=== PATIENT | male | born 1955 | race Caucasian/White ===

== ENCOUNTER 2018-01-05 18:35 | Inpatient (IN) | payer SELFPAY ==
[2018-01-05] MEDS ORDERED: NORMAL SALINE 1000 ML 1,000 ML IV ONE (18:59)
[2018-01-05] MEDS ORDERED: ALBUTEROL SULFATE 0.083% NEB 2.5 MG/3 ML AMPUL NEB ONE (18:59)
[2018-01-05 19:22] LABS: VENOUS BLOOD BASE EXCESS -27.8 mmol/L; VENOUS BLOOD HCO3 4.6 mmol/L (20-32); VENOUS BLOOD PCO2 25.2 mmHg (35-63)
[2018-01-05 19:27] LABS: INTERNATIONAL RATION (INR) 1.26; PROTHROMBIN TIME 16.4 SEC (11.4-15.4)
[2018-01-05 19:30] LABS: HEMATOCRIT 37.8 % (37.9-51.0); HEMOGLOBIN 11.9 g/dL (13.5-17.0); MEAN CORPUSCULAR HEMOGLOBIN 37.1 pg (27.0-33.4); MEAN CORPUSCULAR HGB CONC 31.5 g/dL (32.0-36.0); PLATELET COUNT 235 10^3/uL (150-450); RED BLOOD COUNT 3.21 10^6/uL (4.35-5.55); RED CELL DISTRIBUTION WIDTH 14.2 % (11.5-14.0); VENOUS BLOOD PH 6.88 (7.30-7.42); WHITE BLOOD COUNT 14.3 10^3/uL (4.0-10.5)
--- NOTE | 2018-01-05 19:30 | RADIOLOGY REPORT (SQ) ---
EXAM DESCRIPTION: CHEST SINGLE VIEW COMPLETED DATE/TIME: 01/05/2018 7:16 pm REASON FOR STUDY: SOB, tachypnea COMPARISON: None. EXAM PARAMETERS: NUMBER OF VIEWS: One view. TECHNIQUE: Single frontal radiographic view of the chest acquired. RADIATION DOSE: NA LIMITATIONS: None. FINDINGS: LUNGS AND PLEURA: No acute opacities, masses or pneumothorax. No pleural effusion. MEDIASTINUM AND HILAR STRUCTURES: Age-appropriate contour. HEART AND VASCULAR STRUCTURES: Heart upper limits of normal in size. Normal vasculature. BONES: No acute findings. HARDWARE: None in the chest. OTHER: No other significant finding. IMPRESSION: NO ACUTE RADIOGRAPHIC FINDING IN THE CHEST. TECHNICAL DOCUMENTATION: JOB ID: [id number] [id number] 2010 [employer]- All Rights Reserved Reading location - IP/workstation name: [email or web address]
[2018-01-05 19:31] LABS: MEAN CORPUSCULAR VOLUME 118 fl (80-97)
--- NOTE | 2018-01-05 19:39 | ER Document Report ---
ED General - General Mode of Arrival: Medic Information source: Patient TRAVEL OUTSIDE OF THE [place] IN LAST 30 DAYS: No <PHUC RAPP - Last Filed: 01/06/18 03:04> <KATIE OSEGUERA - Last Filed: 01/06/18 03:15> - General Chief Complaint: Shortness Of Breath Stated Complaint: SHORTNESS OF BREATH Time Seen by Provider: 01/05/18 18:49 Notes: Patient is a 62 year old male with HTN, diabetes, gastroparesis and a history of [place] x2 and a stroke presents to the emergency department complaining of difficulty breathing, nausea, and fatigue onset this morning. Patient states he woke up this morning and just felt awful. He states he thought his symptoms would go away but states they persisted. Patient denies any exacerbation of his difficulty breathing when supine. He mentions having his Insulin decreased along with a change to a Keto diet. Patient also complained of his mouth feeling very dry. Patient denies chest pain, cough, diarrhea, or blurry vision. In triage, patient blood sugar was found to be greater than 550. Patient states it is abnormal for his blood sugars be in the 500s. Patient was discharged from [facility] yesterday after being diagnosed with gastroparesis. (PHUC RAPP) - Related Data Allergies/Adverse Reactions: No Known Allergies Allergy (Unverified 01/05/18 20:21) Past Medical History - General Information source: Patient - Social History Smoking Status: Former Smoker - quit 2013 Chew tobacco use (# tins/day): No Frequency of alcohol use: Occasional Drug Abuse: None Patient has suicidal ideation: No Patient has homicidal ideation: No - Past Medical History Cardiac Medical History: Reports: Hx Heart Attack - x2, no stents, Hx Hypertension Endocrine Medical History: Reports: Hx Diabetes Mellitus Type 2 <PHUC RAPP - Last Filed: 01/06/18 03:04> - Social History Family History: DM <KATIE OSEGUERA - Last Filed: 01/06/18 03:15> Review of Systems - Review of Systems Constitutional: See HPI EENT: No symptoms reported Cardiovascular: No symptoms reported Respiratory: See HPI, Short of breath Gastrointestinal: See HPI, Nausea Genitourinary: No symptoms reported Male Genitourinary: No symptoms reported Musculoskeletal: No symptoms reported Skin: No symptoms reported Hematologic/Lymphatic: No symptoms reported Neurological/Psychological: No symptoms reported -: Yes All other systems reviewed and negative <PHUC RAPP - Last Filed: 01/06/18 03:04> Physical Exam <PHUC RAPP - Last Filed: 01/06/18 03:04> <KATIE OSEGUERA - Last Filed: 01/06/18 03:15> - Vital signs Vitals: Pulse Ox 100 01/05/18 18:39 - Notes Notes: GENERAL: Alert, appears uncomfortable, speaking in 5-6 word sentences. HEAD: Normocephalic, atraumatic. EYES: Pupils equal, round, and reactive to light. Extraocular movements intact. ENT: Oral mucosa moist, tongue midline. NECK: Full range of motion. Supple. Trachea midline. LUNGS:Tachypneic. Clear to auscultation bilaterally, no wheezes, rales, or rhonchi. HEART: Regular rate and rhythm. No murmurs, gallops, or rubs. ABDOMEN: Soft, non-tender. Non-distended. Bowel sounds present in all 4 quadrants. EXTREMITIES: Moves all 4 extremities spontaneously. No edema, faint radial and dorsalis pedis pulses bilaterally. No cyanosis. NEUROLOGICAL: Alert and oriented x3. Normal speech. PSYCH: Normal affect, normal mood. SKIN: Skin is mottled around the knees. Warm, dry, normal turgor. No rashes or lesions noted. (PHUC RAPP) Course - Laboratory Result Diagrams: 01/05/18 19:00 01/06/18 02:07 <PHUC RAPP - Last Filed: 01/06/18 03:04> - Laboratory Result Diagrams: 01/05/18 19:00 01/06/18 02:07 <KATIE OSEGUERA - Last Filed: 01/06/18 03:15> - Re-evaluation Re-evalutation: 01/05/18 19:44 Patient's pH came back at 6.88. Patient is still oriented, mottled, tachypneic and uncomfortable. Will start an insulin drip and BiPAP to help from fatigue of tachypnea and will administer an amp of bicarb. (PHUC RAPP) 01/05/18 21:36 CBC showed leukocytosis of 14.3, anemia with hemoglobin 11.9, platelets normal, no left shift, INR somewhat prolonged at 1.26, not taking any blood thinners, blood gas and chemistries are consistent with diabetic ketoacidosis, venous blood gas shows a pH of 6.88 and a PCO2 of 25.2 consistent with how rapidly he is breathing to compensate for the acidosis, arterial blood gas repeated about an hour and a half later after bicarb had been administered shows a pH of 6.89 and a PCO2 of 13.1, oxygenating well with a PO2 of 211.2, chemistries show elevated potassium at 6.2, this will be treated with the insulin drip that we are using to treat the diabetic ketoacidosis, BUN and creatinine are both elevated, I have no baseline to compare to however states that he had some kidney damage when he was discharged from [facility] yesterday, glucose markedly elevated at 609, lactic acid ability elevated at 7.8, currently I do not suspect sepsis as I have no source and he has no specific complaints other than shortness of breath. Chest x-ray is negative, urinalysis is pending. Cardiac enzymes are elevated with a CK 186, CK-MB of 4.75, troponin elevated at 0.156. No evidence of heart failure, suspect this is more of a reaction to the stress from DKA than a true non-STEMI. EKG is tachycardic but not ischemic. Discussed with Dr. Martell who agrees with insulin drip, hydration, BiPAP for respiratory support given that he is breathing so quickly I am afraid he may fatigue his respiratory muscles and admission to the intensive care unit. (KATIE OSEGUERA) - Vital Signs Vital signs: Temp Pulse Resp BP Pulse Ox 97.0 F 107 H 18 94/53 L 100 01/06/18 00:00 01/05/18 23:35 01/06/18 03:00 01/06/18 02:51 01/06/18 03:00 - Laboratory Laboratory results interpreted by me: 01/05/18 01/05/18 01/05/18 18:50 19:00 19:00 WBC RBC Hgb Hct MCV MCH MCHC RDW Myelocytes % Abs Neuts (Manual) PT Carbonic Acid ABG pH ABG pCO2 ABG pO2 ABG HCO3 ABG Total CO2 ABG O2 Saturation VBG pH 6.88 L* VBG pCO2 25.2 L VBG HCO3 4.6 L Potassium Chloride Carbon Dioxide BUN Creatinine Est GFR ( Amer) Est GFR (Non-Af Amer) Glucose POC Glucose > 550 H* Lactic Acid 7.8 H Direct Bilirubin Creatine Kinase CK-MB (CK-2) 01/05/18 01/05/18 01/05/18 19:00 19:00 19:00 WBC 14.3 H RBC 3.21 L Hgb 11.9 L Hct 37.8 L MCV 118 H MCH 37.1 H MCHC 31.5 L RDW 14.2 H Myelocytes % 1 H Abs Neuts (Manual) 11.4 H PT 16.4 H Carbonic Acid ABG pH ABG pCO2 ABG pO2 ABG HCO3 ABG Total CO2 ABG O2 Saturation VBG pH VBG pCO2 VBG HCO3 Potassium 6.2 H* Chloride 90 L Carbon Dioxide < 5 L* BUN 28 H Creatinine 1.81 H Est GFR ( Amer) 46 L Est GFR (Non-Af Amer) 38 L Glucose 609 H* POC Glucose Lactic Acid Direct Bilirubin 0.7 H Creatine Kinase 186 H CK-MB (CK-2) 01/05/18 01/05/18 19:00 20:24 WBC RBC Hgb Hct MCV MCH MCHC RDW Myelocytes % Abs Neuts (Manual) PT Carbonic Acid 0.39 L ABG pH 6.96 L* ABG pCO2 13.1 L* ABG pO2 211.2 H ABG HCO3 2.9 L ABG Total CO2 3.3 L ABG O2 Saturation 98.8 H VBG pH VBG pCO2 VBG HCO3 Potassium Chloride Carbon Dioxide BUN Creatinine Est GFR ( Amer) Est GFR (Non-Af Amer) Glucose POC Glucose Lactic Acid Direct Bilirubin Creatine Kinase CK-MB (CK-2) 4.75 H - EKG Interpretation by Me Additional EKG results interpreted by me: 01/05/18 21:36 EKG shows sinus tachycardia at a rate 116, normal axis, interventricular conduction delay QRS only slightly prolonged at 106, no ST segment elevations or depressions, isolated T-wave inversions in lead III and flattening in aVF per my interpretation. (KATIE OSEGUERA) Critical Care Note - Critical Care Note Total time excluding time spent on procedures (mins): 70 <KATIE OSEGUERA - Last Filed: 01/06/18 03:15> Discharge <PHUC RAPP - Last Filed: 01/06/18 03:04> - Discharge Admitting Provider: Hospitalist - [facility] Admitted: ICU <KATIE OSEGUERA - Last Filed: 01/06/18 03:15> - Discharge Clinical Impression: Hyperkalemia Diabetic ketoacidosis Qualifiers: Diabetes mellitus type: type 2 Diabetes mellitus complication detail: without coma Qualified Code(s): E11.10 - Type 2 diabetes mellitus with ketoacidosis without coma Acute renal failure Qualifiers: Acute renal failure type: unspecified Qualified Code(s): N17.9 - Acute kidney failure, unspecified Condition: Critical Disposition: ADMITTED INPATIENT Scribe Attestation: 01/06/18 03:15 I personally performed the services described in the documentation, reviewed and edited the documentation which was dictated to the scribe in my presence, and it accurately records my words and actions. (KATIE OSEGUERA) Scribe Documentation - Scribe Written by Nick:: Nick Townsend, 01/05/2018 19:54 acting as scribe for :: Shelbi <PHUC RAPP - Last Filed: 01/06/18 03:04>
[2018-01-05 19:41] LABS: ALANINE AMINOTRANSFERASE 42 U/L (21-72); ALBUMIN 4.3 g/dL (3.5-5.0); ALKALINE PHOSPHATASE 72 U/L (38-126); ASPARTATE AMINO TRANSFERASE 46 U/L (17-59); BILIRUBIN,DIRECT 0.7 mg/dL (0.0-0.4); BILIRUBIN,TOTAL 0.7 mg/dL (0.2-1.3); BLOOD UREA NITROGEN 28 mg/dL (7-20); CALCIUM 10.2 mg/dL (8.4-10.2); CHLORIDE 90 mmol/L (98-107); CREATINE KINASE 186 U/L (55-170); SODIUM 137.7 mmol/L (137-145); TOTAL PROTEIN 6.8 g/dL (6.3-8.2)
[2018-01-05] MEDS ORDERED: INSULIN REG, HUMAN 100 UNIT/ML 3 ML VIAL (PYX) IV ONE (19:41)
[2018-01-05] MEDS ORDERED: SODIUM BICARBONATE 8.4% INJ 50 MEQ/50 ML DISP.SYRIN IV ONE ×2 (19:45→19:52)
[2018-01-05 19:49] LABS: ABSOLUTE MONOCYTES # (MANUAL) 0.9 10^3/uL (0.1-1.4); ABSOLUTE NEUTROPHILS# (MANUAL) 11.4 10^3/uL (1.7-8.2); BAND NEUTROPHILS % (MANUAL) 3 % (3-5); BASOPHILS % (MANUAL) 0 % (0-2); EOSINOPHILS % (MANUAL) 0 % (0-6); LYMPHOCYTES % (MANUAL) 14 % (13-45); MONOCYTES % (MANUAL) 6 % (3-13); SEGMENTED NEUTROPHILS % (MAN) 76 % (42-78); TOTAL CELLS COUNTED 100
[2018-01-05 19:52] LABS: CREATINE KINASE MB 4.75 ng/mL (<4.55)
[2018-01-05 19:53] LABS: ANISOCYTOSIS SLIGHT; TOXIC VACUOLATION PRESENT
[2018-01-05 19:54] LABS: MYELOCYTES % (MANUAL) 1 % (0); OVALOCYTES SLIGHT; PLATELET COMMENT ADEQUATE; POIKILOCYTOSIS SLIGHT
[2018-01-05 19:56] LABS: TROPONIN I 0.156 ng/mL
[2018-01-05 19:57] LABS: CARBON DIOXIDE < 5 mmol/L (22-30); GLUCOSE 609 mg/dL (75-110); POTASSIUM 6.2 mmol/L (3.6-5.0)
[2018-01-05] MEDS ORDERED: CALCIUM GLUCONATE 1000 MG/10 ML INJ IV ONE (19:58)
[2018-01-05] MEDS: RINGERS SOLUTION,LACTATED 1,000 ML IV PRN ×2 (20:07→20:12)
[2018-01-05 20:36] LABS: ARTERIAL BLOOD BASE EXCESS -27.3 mmol/L; ARTERIAL BLOOD H2CO3 0.39 mmol/L (1.05-1.35); ARTERIAL BLOOD HCO3 2.9 mmol/L (20-26); ARTERIAL BLOOD O2 SATURATION 98.8 % (94-98); ARTERIAL BLOOD PO2 211.2 mmHg (80-100); ARTERIAL BLOOD TOTAL CO2 3.3 mmol/L (23-27)
[2018-01-05 20:41] LABS: ARTERIAL BLOOD FIO2 30%
[2018-01-05 20:44] LABS: ARTERIAL BLOOD PCO2 13.1 mmHg (35-45); ARTERIAL BLOOD PH 6.96 (7.35-7.45)
[2018-01-05] MEDS ORDERED: ACETAMINOPHEN 325 MG TABLET PO PRN (21:44)
[2018-01-05] MEDS ORDERED: NORMAL SALINE 1000 ML 1,000 ML IV PRN (21:52)
[2018-01-05] MEDS ORDERED: THIAMINE HCL 100 MG, FOLIC ACID 1 MG in NORMAL SALINE 250 ML IV SCH (22:00)
[2018-01-05] MEDS ORDERED: THIAMINE HCL INJ 200 MG/2 ML VIAL IV PRN (22:18)
[2018-01-05] MEDS ORDERED: FOLIC ACID INJ 5 MG/1 ML 10 ML VIAL IV PRN (22:19)
--- NOTE | 2018-01-05 22:19 | PDOC H&P ---
History of Present Illness Admission Date/PCP: 01/05/18 21:46 History of Present Illness: GEORGES GUZMÁN is a 62 year old male patient with PMD of uncontrolled diabetes mellitus, hypertension, hyperlipidemia, coronary artery disease, NM, stroke, alcohol abuse, presents with chief complaint of shortness of breath and weakness. Patient was discharged yesterday from [facility] after he was treated for nausea and vomiting and diagnosed with gastroparesis. Denies fever, cough, chest pain, palpitation or diaphoresis. He has nausea but no vomiting or diarrhea. His initial blood work shows his ABG shows pH of 6.96 blood sugar 609 potassium of 6.2 bicarb of less than 5 and creatinine of 1.81. With impression of DKA patient has been started on insulin drip and he was given also sodium bicarbonate. Of note patient drinks vodka on a daily basis. No headache, dizziness, blurry vision or any cyst or any seizure activity. Past Medical History Cardiac Medical History: Reports: Myocardial Infarction - x2, no stents, Hypertension Endocrine Medical History: Reports: Diabetes Mellitus Type 2 Social History Smoking Status: Former Smoker - quit 2012 Frequency of Alcohol Use: None Hx Recreational Drug Use: No Drugs: None - Advance Directive Resuscitation Status: Full Code Family History Family History: DM, Hypertension Parental Family History Reviewed: Yes Children Family History Reviewed: Yes Sibling(s) Family History Reviewed.: Yes Medication/Allergy Home Medications: Aspirin [Aspirin EC] 81 mg PO DAILY 01/05/18 Atorvastatin Calcium [Lipitor 10 mg Tablet] 10 mg PO QHS 01/05/18 Insulin Glargine,Hum.rec.anlog [Lantus Solostar] 23 units SQ DAILY 01/05/18 Insulin Lispro [Humalog Kwikpen U-100] See Protocol SQ MEALS 01/05/18 Lisinopril [Zestril] 20 mg PO DAILY 01/05/18 Metoprolol Succinate [Toprol Xl 50 mg Tab.sr] 50 mg PO DAILY 01/05/18 Multivit-Min/FA/Lycopen/Lutein [Centrum Silver Men Tablet] 1 tab PO DAILY Allergies/Adverse Reactions: No Known Allergies Allergy (Unverified 01/05/18 20:21) Review of Systems Constitutional: PRESENT: as per HPI Eyes: PRESENT: as per HPI Cardiovascular: PRESENT: as per HPI Respiratory: PRESENT: as per HPI Gastrointestinal: PRESENT: as per HPI Neurological: PRESENT: as per HPI Psychiatric: PRESENT: as per HPI Physical Exam Vital Signs: Temp Pulse Resp BP Pulse Ox 97.5 F 25 H 87/62 L 100 01/05/18 19:36 01/05/18 21:02 01/05/18 21:02 01/05/18 21:02 General appearance: PRESENT: mild distress Mouth exam: PRESENT: dry mucosa Neck exam: ABSENT: carotid bruit, JVD, lymphadenopathy, thyromegaly Respiratory exam: PRESENT: tachypnea Cardiovascular exam: PRESENT: RRR. ABSENT: diastolic murmur, rubs, systolic murmur GI/Abdominal exam: PRESENT: normal bowel sounds, soft. ABSENT: distended, guarding, mass, organolmegaly, rebound, tenderness Neurological exam: PRESENT: alert, awake, oriented to time, oriented to situation Psychiatric exam: PRESENT: normal mood Results Impressions: Chest X-Ray 01/05/18 18:59 IMPRESSION: NO ACUTE RADIOGRAPHIC FINDING IN THE CHEST. Assessment & Plan - Diagnosis (1) DKA (diabetic ketoacidoses) Qualifiers: Diabetes mellitus type: type 2 Is this a current diagnosis for this admission?: Yes Plan: Patient is indicated evidenced by on the portable anion gap, hyperglycemia, metabolic acidosis and acidotic breathing. Patient is going to be hydrated adequately, on insulin drip he was given bicarbonate and he will be admitted to ICU. BMP every 2 hours and Accu-Chek every 1 hour. (2) Hyperkalemia Is this a current diagnosis for this admission?: Yes Plan: Check his BMP if still high we will give him Kayexalate. (3) Type 2 diabetes mellitus Is this a current diagnosis for this admission?: Yes Plan: Reportedly patient's diabetes is not well controlled. There is some element of medical noncompliance. (4) Hypertension Qualifiers: Hypertension type: essential hypertension Qualified Code(s): I10 - Essential (primary) hypertension Is this a current diagnosis for this admission?: Yes Plan: Continue his home medications. (5) Alcohol dependence Qualifiers: Substance use status: uncomplicated Qualified Code(s): F10.20 - Alcohol dependence, uncomplicated Is this a current diagnosis for this admission?: Yes Plan: Patient has been started on Ativan, diazepam for prevention of withdrawal. He is also started on folic acid and thiamine. - Time Time Spent: 30 to 50 Minutes - Inpatient Certification Medical Necessity: Need Close Monitoring Due to Risk of Patient Decompensation, Need For IV Fluids
[2018-01-05] MEDS: METOCLOPRAMIDE HCL INJ/PF 10 MG/2 ML SDV IV SCH (22:30)
[2018-01-05] MEDS: LORAZEPAM INJ 2 MG/1 ML VIAL IV PRN (22:46)
[2018-01-05] MEDS ORDERED: GLUCAGON,HUMAN RECOMB 1 MG INJ IM PRN (22:52)
[2018-01-05] MEDS ORDERED: DEXTROSE 50%-WATER 25 GM/50 ML DISP.SYRIN IV PRN ×2 (22:52)
[2018-01-05] MEDS ORDERED: DEXTROSE 40% GEL 15 GM TUBE PO PRN ×2 (22:52)
[2018-01-05] MEDS ORDERED: NORMAL SALINE 100 ML with INSULIN REGULAR, HUMAN 100 UNIT IV PRN ×2 (22:52)
[2018-01-05 23:26] LABS: APPEARANCE,URINE SLIGHTLY-CLOUDY; BILIRUBIN,URINE NEGATIVE (NEGATIVE); COLOR,URINE YELLOW; GLUCOSE, URINE >=500 mg/dL (NEGATIVE); KETONES,URINE 80 mg/dL (NEGATIVE); LEUKOCYTE ESTERASE,URINE NEGATIVE (NEGATIVE); NITRITE,URINE NEGATIVE (NEGATIVE); PROTEIN,URINE 30 mg/dL (NEGATIVE); URINE SPECIFIC GRAVITY 1.013; UROBILINOGEN,URINE NEGATIVE mg/dL (<2.0)
[2018-01-06] MEDS ORDERED: NOREPINEPHRINE BITARTRATE INJ/PF 4 MG/4 ML SDV IV ONE ×2 (00:09→05:40)
[2018-01-06 00:14] LABS: BLOOD UREA NITROGEN 31 mg/dL (7-20); CALCIUM 9.7 mg/dL (8.4-10.2); CHLORIDE 90 mmol/L (98-107); POTASSIUM 5.6 mmol/L (3.6-5.0)
[2018-01-06] MEDS ORDERED: NORMAL SALINE 1000 ML 1,000 ML IV ONE ×2 (00:15→06:45)
[2018-01-06 00:19] LABS: ANION GAP 37 (5-19); SODIUM 133.3 mmol/L (137-145)
[2018-01-06 00:21] LABS: GLUCOSE 613 mg/dL (75-110)
[2018-01-06 00:22] LABS: CARBON DIOXIDE 6 mmol/L (22-30)
[2018-01-06 00:23] LABS: ARTERIAL BLOOD BASE EXCESS -25.1 mmol/L; ARTERIAL BLOOD H2CO3 0.39 mmol/L (1.05-1.35); ARTERIAL BLOOD HCO3 3.4 mmol/L (20-26); ARTERIAL BLOOD O2 SATURATION 98.2 % (94-98); ARTERIAL BLOOD PO2 157.6 mmHg (80-100); ARTERIAL BLOOD TOTAL CO2 3.8 mmol/L (23-27)
[2018-01-06 00:24] LABS: ARTERIAL BLOOD FIO2 2L; ARTERIAL BLOOD PH 7.04 (7.35-7.45)
[2018-01-06 00:25] LABS: ARTERIAL BLOOD PCO2 12.8 mmHg (35-45)
[2018-01-06] MEDS: DEXTROSE 5%-WATER 250 ML with NOREPINEPHRINE BITARTRATE 4 MG IV PRN ×6 (00:59→09:10)
[2018-01-06] MEDS: DIAZEPAM 5 MG TABLET PO SCH ×2 (01:00→05:46)
[2018-01-06 02:28] LABS: BLOOD UREA NITROGEN 33 mg/dL (7-20); CALCIUM 9.1 mg/dL (8.4-10.2); CHLORIDE 94 mmol/L (98-107); POTASSIUM 5.5 mmol/L (3.6-5.0)
[2018-01-06 02:36] LABS: SODIUM 135.5 mmol/L (137-145)
[2018-01-06 02:38] LABS: CARBON DIOXIDE 5 mmol/L (22-30); GLUCOSE 524 mg/dL (75-110)
[2018-01-06 03:08] LABS: ARTERIAL BLOOD BASE EXCESS -20.7 mmol/L; ARTERIAL BLOOD H2CO3 0.48 mmol/L (1.05-1.35); ARTERIAL BLOOD HCO3 5.7 mmol/L (20-26); ARTERIAL BLOOD O2 SATURATION 80.6 % (94-98); ARTERIAL BLOOD PO2 53.9 mmHg (80-100); ARTERIAL BLOOD TOTAL CO2 6.2 mmol/L (23-27)
[2018-01-06 03:09] LABS: ARTERIAL BLOOD FIO2 2L
[2018-01-06 03:10] LABS: ARTERIAL BLOOD PH 7.17 (7.35-7.45)
[2018-01-06] MEDS: LORAZEPAM INJ 2 MG/1 ML VIAL IV PRN (03:35)
[2018-01-06] MEDS ORDERED: PROPOFOL 1,000 MG/100 ML INFUS..BTL IV ONE ×2 (03:58→06:40)
[2018-01-06] MEDS ORDERED: MIDAZOLAM HCL 50 MG/100 ML RTUINJ ONE (04:31)
[2018-01-06 04:33] LABS: BLOOD UREA NITROGEN 36 mg/dL (7-20); CALCIUM 8.8 mg/dL (8.4-10.2); CHLORIDE 96 mmol/L (98-107); POTASSIUM 5.9 mmol/L (3.6-5.0)
[2018-01-06 04:40] LABS: ANION GAP 30 (5-19)
--- NOTE | 2018-01-06 04:40 | RADIOLOGY REPORT (SQ) ---
EXAM DESCRIPTION: Single view of the chest CLINICAL HISTORY: ET Tube and NG Tube Placement COMPARISON: 01/05/2018 FINDINGS: Single frontal view of the chest. Endotracheal tube with tip in the proximal right mainstem bronchus. NG tube with tip below the diaphragm. Heart is not enlarged. Leads overlie the chest. No consolidation, pneumothorax, pleural effusion. No acute osseous abnormalities identified. Upper abdominal soft tissues are unremarkable. IMPRESSION: 1. Endotracheal tube with tip in the proximal right mainstem bronchus. Recommend repositioning. 2. NG tube in appropriate radiographic position.
[2018-01-06 04:41] LABS: CARBON DIOXIDE 8 mmol/L (22-30); GLUCOSE 485 mg/dL (75-110)
--- NOTE | 2018-01-06 04:49 | PDOC TRANSFER SUMMARY ---
General Admission Date/PCP: 01/05/18 21:46 Resuscitation Status: Full Code - Transfer Diagnosis (1) DKA (diabetic ketoacidoses) Is this a current diagnosis for this admission?: Yes (2) Hyperkalemia Is this a current diagnosis for this admission?: Yes (3) Type 2 diabetes mellitus Is this a current diagnosis for this admission?: Yes (4) Hypertension Is this a current diagnosis for this admission?: Yes (5) Alcohol dependence Is this a current diagnosis for this admission?: Yes - Transfer Medications Home Medications: Aspirin [Aspirin EC] 81 mg PO DAILY 01/05/18 Atorvastatin Calcium [Lipitor 10 mg Tablet] 10 mg PO QHS 01/05/18 Insulin Glargine,Hum.rec.anlog [Lantus Solostar] 23 units SQ DAILY 01/05/18 Insulin Lispro [Humalog Kwikpen U-100] See Protocol SQ MEALS 01/05/18 Lisinopril [Zestril] 20 mg PO DAILY 01/05/18 Metoprolol Succinate [Toprol Xl 50 mg Tab.sr] 50 mg PO DAILY 01/05/18 Multivit-Min/FA/Lycopen/Lutein [Centrum Silver Men Tablet] 1 tab PO DAILY Transfer Medications: Current Medications Acetaminophen (Tylenol 325 Mg Tablet) 650 mg PO Q4HP PRN PRN Reason: FEVER >101 Stop: 02/04/18 21:43 Dextrose (Dextrose Inj 50% Syringe (25 Gm/50 Ml)) 25 gm IV PRN PRN; Protocol PRN Reason: PER PROTOCOL Stop: 02/04/18 22:51 Dextrose (Dextrose Inj 50% Syringe (25 Gm/50 Ml)) 12.5 gm IV PRN PRN; Protocol PRN Reason: FOR BG 50-69 IN ALERT PATIENT Stop: 02/04/18 22:51 Diazepam (Valium 5 Mg Tablet) 10 mg PO Q8 UDAY Stop: 01/12/18 21:59 Last Admin: 01/06/18 01:00 Dose: Not Given Enoxaparin Sodium (Lovenox Inj 40 Mg/0.4 Ml Disp.Syrin) 40 mg SUBCUT DAILY UDAY Stop: 02/05/18 09:59 Folic Acid (Folvite Inj 5 Mg/1 Ml 10 Ml Vial) 1 mg IV ASDIR PRN Stop: 01/06/18 05:00 Glucagon (Glucagen Inj 1 Mg Vial) 1 mg IM PRN PRN; Protocol PRN Reason: Evaluate for BG < 70 Stop: 02/04/18 22:51 Glucose (Glutose 40% Gel 15 Gm Tube) 15 gm PO PRN PRN; Protocol PRN Reason: FOR BG 50-69 IN ALERT PATIENT Stop: 02/04/18 22:51 Glucose (Glutose 40% Gel 15 Gm Tube) 30 gm PO PRN PRN; Protocol PRN Reason: FOR BG < 50 IN ALERT PATIENT Stop: 02/04/18 22:51 Sodium Chloride (Nacl 0.9% 1000 Ml Iv Soln) 1,000 mls @ 150 mls/hr IV CONTINUOUS PRN PRN Reason: THIS MED IS NOT "PRN" Stop: 02/04/18 21:51 Last Admin: 01/06/18 01:36 Dose: 1,000 ml Thiamine HCl 100 mg/ Folic (Acid 1 mg/ Sodium Chloride) 251.2 mls @ 502.4 mls/ hr IV DAILY [facility] Stop: 02/04/18 21:59 Insulin Human Regular 100 unit (/ Sodium Chloride) 101 mls @ 0 mls/hr IV CONTINUOUS PRN; Protocol; Titrate PRN Reason: THIS MED IS NOT "PRN" Stop: 02/04/18 22:51 Norepinephrine Bitartrate 4 mg (/ Dextrose) 250 mls @ 0 mls/hr IV CONTINUOUS PRN; Protocol; Titrate PRN Reason: THIS MED IS NOT "PRN" Stop: 02/05/18 00:33 Last Admin: 01/06/18 00:59 Dose: 4 mg Lorazepam (Ativan Inj 2 Mg/1 Ml Vial) 2 mg IV Q2HP PRN PRN Reason: ANXIETY/AGITATION Stop: 01/12/18 21:51 Last Admin: 01/06/18 03:35 Dose: 2 mg Metoclopramide HCl (Reglan Inj/Pf 10 Mg/2 Ml Sdv) 10 mg IV ACHS [facility] Stop: 02/04/18 21:59 Last Admin: 01/05/18 22:30 Dose: 10 mg Sodium Chloride (Saline Flush 2.5 Ml Monoject Prefil Syrin) 2.5 ml IV Q8 [facility] Stop: 02/04/18 21:59 Last Admin: 01/05/18 22:32 Dose: 2.5 ml Thiamine HCl (Thiamine Hcl Inj 200 Mg/2 Ml Vial) 100 mg IV ASDIR PRN Stop: 01/06/18 05:00 - Allergies Allergies/Adverse Reactions: No Known Allergies Allergy (Unverified 01/05/18 20:21) Hospital Course Hospital Course: This is a 63 years old male patient [facility] At presentation his blood sugar was 609 with potassium 6.2 bicarb less than 5. Patient has been managed aggressively with fluid and insulin drip at ER then patient transferred to medical intensive care unit. By the time when he arrived to the ICU patient become hypotensive with blood pressure of 80/55 and he was also hypothermic. He was further bolused with 2 L of normal saline maintained with 150 mL/h and he was also started on Levophed. Patient also become agitated and restless so he is started on as needed Ativan. Of note patient is a known alcoholic. Patient's breathing becomes labored and tachypneic at which point we decided to intubate him to protect his airways. Of note his first set troponin is 0.156 the second set 2.8 in the last was 30.3. Even though there is no specific EKG changes but the markedly elevated troponin is worrisome so for this reason and for overall further treatment ,evaluation and management patient is going to be transferred to [facility]. I contacted who accepted the patient. Physical Exam Vital Signs: Temp Pulse Resp BP Pulse Ox 98.8 F 107 H 18 94/53 L 100 01/06/18 03:51 01/05/18 23:35 01/06/18 03:00 01/06/18 02:51 01/06/18 03:00 Intake & Output 01/04/18 01/05/18 01/06/18 06:59 06:59 06:59 Output Total 290 Balance -290 Weight 91.9 kg General appearance: PRESENT: severe distress Head exam: PRESENT: atraumatic, normocephalic Eye exam: PRESENT: conjunctiva pink, EOMI, PERRLA. ABSENT: scleral icterus Mouth exam: PRESENT: dry mucosa Neck exam: ABSENT: carotid bruit, JVD, lymphadenopathy, thyromegaly Respiratory exam: PRESENT: accessory muscle use, wheezes Cardiovascular exam: PRESENT: tachycardia GI/Abdominal exam: PRESENT: normal bowel sounds, soft. ABSENT: distended, guarding, mass, organolmegaly, rebound, tenderness Neurological exam: PRESENT: altered Psychiatric exam: PRESENT: agitated Focused psych exam: PRESENT: restlessness Results Laboratory Results: 01/05/18 01/05/18 01/05/18 22:50 23:00 23:55 Carbonic Acid HCO3/H2CO3 Ratio ABG pH ABG pCO2 ABG pO2 ABG HCO3 ABG O2 Saturation ABG Base Excess FiO2 Sodium 133.3 L Potassium 5.6 H Chloride 90 L Carbon Dioxide 6 L* Anion Gap 37 H BUN 31 H Creatinine 2.18 H Est GFR ( Amer) 37 L Est GFR (Non-Af Amer) 31 L Glucose 613 H* Lactic Acid 4.6 H Calcium 9.7 Urine Color YELLOW Urine Appearance SLIGHTLY-CLOUDY Urine pH 5.0 Ur Specific [place] 1.013 Urine Protein 30 H Urine Glucose (UA) >=500 H Urine Ketones 80 H Urine Blood MODERATE H Urine Nitrite NEGATIVE Ur Leukocyte Esterase NEGATIVE Urine WBC (Auto) 0 Urine RBC (Auto) 1 01/06/18 01/06/18 01/06/18 00:10 02:07 03:00 Carbonic Acid 0.39 L 0.48 L HCO3/H2CO3 Ratio 8:1 11:1 ABG pH 7.04 L* 7.17 L* ABG pCO2 12.8 L* 16.0 L* ABG pO2 157.6 H 53.9 L ABG HCO3 3.4 L 5.7 L ABG O2 Saturation 98.2 H 80.6 L ABG Base Excess -25.1 -20.7 FiO2 2L 2L Sodium 135.5 L Potassium 5.5 H Chloride 94 L Carbon Dioxide 5 L* Anion Gap Not Reportable BUN 33 H Creatinine 1.90 H Est GFR ( Amer) 44 L Est GFR (Non-Af Amer) 36 L Glucose 524 H* Lactic Acid Calcium 9.1 Urine Color Urine Appearance Urine pH Ur Specific [place] Urine Protein Urine Glucose (UA) Urine Ketones Urine Blood Urine Nitrite Ur Leukocyte Esterase Urine WBC (Auto) Urine RBC (Auto) 01/05/18 01/06/18 22:50 02:57 Troponin I 2.800 30.300 Impressions: Chest X-Ray 01/05/18 18:59 IMPRESSION: NO ACUTE RADIOGRAPHIC FINDING IN THE CHEST. Plan Time Spent: Greater than 30 Minutes - Patient transferred to [facility]
--- NOTE | 2018-01-06 05:23 | RADIOLOGY REPORT (SQ) ---
Clinical History : ETT placement , Exam : Portable AP view of the chest 01/06/2018 5:04 AM CDT Comparisons : Portable AP view of the chest January 06, 2018 Findings : There is an endotracheal tube with its tip 1.2 cm above the lopez. There is an enteric tube with its tip in the gastric body. The lungs are low in volume which accentuates the pulmonary vasculature. There is otherwise no focal consolidation or pleural effusion.. The heart is normal in size. The mediastinal contours are normal in appearance. The thoracic spine is age appropriate. The shoulders are unremarkable. Limited evaluation of the upper abdomen demonstrates no gross abnormalities. Impression: 1. Life support lines and tubes in appropriate position. 2. Low lung volumes, otherwise no acute cardiopulmonary disease.
[2018-01-06 05:35] LABS: ARTERIAL BLOOD BASE EXCESS -17.8 mmol/L; ARTERIAL BLOOD H2CO3 0.73 mmol/L (1.05-1.35); ARTERIAL BLOOD HCO3 8.8 mmol/L (20-26); ARTERIAL BLOOD O2 SATURATION 98.3 % (94-98); ARTERIAL BLOOD PCO2 24.1 mmHg (35-45); ARTERIAL BLOOD PO2 143.3 mmHg (80-100); ARTERIAL BLOOD TOTAL CO2 9.6 mmol/L (23-27)
[2018-01-06 05:36] LABS: ARTERIAL BLOOD FIO2 50%; ARTERIAL BLOOD PH 7.18 (7.35-7.45)
[2018-01-06 06:14] LABS: ABSOLUTE LYMPHOCYTES (AUTO) 0.8 10^3/uL (0.5-4.7); ABSOLUTE MONOCYTES (AUTO) 0.5 10^3/uL (0.1-1.4); ABSOLUTE NEUT (AUTO) 6.5 10^3/uL (1.7-8.2); BASOPHILS % (AUTO) 0.2 % (0-2); HEMATOCRIT 28.2 % (37.9-51.0); LYMPHOCYTES % (AUTO) 10.1 % (13-45); MEAN CORPUSCULAR HEMOGLOBIN 37.6 pg (27.0-33.4); MEAN CORPUSCULAR HGB CONC 34.3 g/dL (32.0-36.0); MONOCYTES % (AUTO) 5.9 % (3-13); PLATELET COUNT 198 10^3/uL (150-450); RED BLOOD COUNT 2.57 10^6/uL (4.35-5.55); RED CELL DISTRIBUTION WIDTH 13.1 % (11.5-14.0); SEGMENTED NEUTROPHILS % (AUTO) 83.8 % (42-78); TOTAL CELLS COUNTED % (AUTO) 100 %; WHITE BLOOD COUNT 7.7 10^3/uL (4.0-10.5)
[2018-01-06 06:15] LABS: HEMOGLOBIN 9.7 g/dL (13.5-17.0); MEAN CORPUSCULAR VOLUME 110 fl (80-97)
[2018-01-06 06:30] LABS: ALANINE AMINOTRANSFERASE 47 U/L (21-72); ALKALINE PHOSPHATASE 46 U/L (38-126); ASPARTATE AMINO TRANSFERASE 155 U/L (17-59); BILIRUBIN,DIRECT 0.3 mg/dL (0.0-0.4); BILIRUBIN,TOTAL 0.3 mg/dL (0.2-1.3); BLOOD UREA NITROGEN 37 mg/dL (7-20); CALCIUM 8.4 mg/dL (8.4-10.2); CARBON DIOXIDE 12 mmol/L (22-30); POTASSIUM 5.1 mmol/L (3.6-5.0); TOTAL PROTEIN 5.2 g/dL (6.3-8.2)
[2018-01-06 06:35] LABS: CHLORIDE 99 mmol/L (98-107); SODIUM 135.8 mmol/L (137-145)
[2018-01-06 06:40] LABS: ANION GAP 25 (5-19)
[2018-01-06 06:41] LABS: GLUCOSE 436 mg/dL (75-110)
[2018-01-06] MEDS ORDERED: PROPOFOL 1,000 MG/100 ML INFUS..BTL IV PRN (06:54)
[2018-01-06] MEDS ORDERED: MIDAZOLAM HCL 50 MG/100 ML RTUINJ IV-INFUSE PRN (06:55)
--- NOTE | 2018-01-06 07:38 | EKG REPORT ---
SEVERITY:- BORDERLINE ECG - SINUS RHYTHM NONSPECIFIC ANTERIOR ST-T CHANGES : Confirmed by: Juliano Valladares MD 06-Jan-2018 07:38:03
--- NOTE | 2018-01-06 07:40 | EKG REPORT ---
SEVERITY:- ABNORMAL ECG - SINUS TACHYCARDIA CONSIDER POSTERIOR WALL INVOLVEMENT : Confirmed by: Juliano Valladares MD 06-Jan-2018 07:39:37
[2018-01-06] MEDS ORDERED: DEXTROSE 5%-WATER 250 ML with PHENYLEPHRINE HCL 40 MG IV PRN ×2 (08:17)
--- NOTE | 2018-01-06 08:19 | RADIOLOGY REPORT (SQ) ---
EXAM DESCRIPTION: CHEST SINGLE VIEW COMPLETED DATE/TIME: 01/06/2018 7:48 am REASON FOR STUDY: Central Line Placement COMPARISON: Same date 03/08/2018, 0508 hours EXAM PARAMETERS: NUMBER OF VIEWS: One view. TECHNIQUE: Single frontal radiographic view of the chest acquired. RADIATION DOSE: NA LIMITATIONS: None. FINDINGS: LUNGS AND PLEURA: The lungs remain clear, no pneumothorax post right jugular catheter. MEDIASTINUM AND HILAR STRUCTURES: Stable HEART AND VASCULAR STRUCTURES: Heart normal in size. Normal vasculature. BONES: No acute findings. HARDWARE: Right jugular catheter tip partially obscured by overlying wires, but at approximately the junction of the RA and SVC. Endotracheal tube tip above the lopez with aeration of both lung lopez . Nasogastric tube extends below the diaphragm. Multiple wires overlie the chest and left axilla. OTHER: No other significant finding. IMPRESSION: Stable appearance. Endotracheal tube tip above the lopez. Right jugular catheter in place. No pneumothorax. TECHNICAL DOCUMENTATION: JOB ID: [id number] [employer]- All Rights Reserved Reading location - IP/workstation name: [email or web address]
[2018-01-06] MEDS: METOCLOPRAMIDE HCL INJ/PF 10 MG/2 ML SDV IV SCH (08:42)
[2018-01-06] MEDS ORDERED: HEPARIN SODIUM,PORCINE/D5W 25,000 UNIT/250 ML RTUINJ IV ONE (08:52)
[2018-01-06] MEDS ORDERED: HEPARIN SOD (PORCINE) 1,000 UNIT/ML 10 ML VIAL ONE (08:57)
[2018-01-06 08:58] LABS: BLOOD UREA NITROGEN 38 mg/dL (7-20); CALCIUM 8.4 mg/dL (8.4-10.2); CHLORIDE 100 mmol/L (98-107); GLUCOSE 392 mg/dL (75-110); POTASSIUM 4.7 mmol/L (3.6-5.0)
[2018-01-06] MEDS ORDERED: HEPARIN SOD (PORCINE) 1,000 UNIT/ML 10 ML VIAL IV ONE (09:01)
[2018-01-06 09:04] LABS: CARBON DIOXIDE 14 mmol/L (22-30); SODIUM 134.4 mmol/L (137-145)
[2018-01-06 09:05] LABS: ANION GAP 20 (5-19)
[2018-01-06] MEDS ORDERED: HEPARIN SODIUM,PORCINE/D5W 25,000 UNIT/250 ML RTUINJ IV PRN (09:12)
[2018-01-06 09:22] LABS: TROPONIN I 67.7 ng/mL
[2018-01-06 09:25] VITALS: BP 118/65
[2018-01-06] MEDS ORDERED: HYDROMORPHONE HCL INJ/PF 2 MG/ML AMPULE IV PRN (09:25)
[2018-01-06] MEDS ORDERED: MORPHINE SULFATE 10 MG/ML INJ IV PRN (09:27)
[2018-01-06] MEDS ORDERED: MORPHINE SULFATE 10 MG/ML INJ ONE (09:28)
[2018-01-06 09:34] LABS: ARTERIAL BLOOD BASE EXCESS -11.3 mmol/L; ARTERIAL BLOOD H2CO3 0.64 mmol/L (1.05-1.35); ARTERIAL BLOOD HCO3 12.1 mmol/L (20-26); ARTERIAL BLOOD O2 SATURATION 98.2 % (94-98); ARTERIAL BLOOD PCO2 21.2 mmHg (35-45); ARTERIAL BLOOD PH 7.37 (7.35-7.45); ARTERIAL BLOOD PO2 114.5 mmHg (80-100); ARTERIAL BLOOD TOTAL CO2 12.7 mmol/L (23-27)
[2018-01-06 09:35] LABS: ARTERIAL BLOOD FIO2 40
[2018-01-06 09:39] LABS: ABSOLUTE MONOCYTES (AUTO) 0.5 10^3/uL (0.1-1.4); ABSOLUTE NEUT (AUTO) 6.7 10^3/uL (1.7-8.2); BASOPHILS % (AUTO) 0.1 % (0-2); HEMATOCRIT 29.3 % (37.9-51.0); HEMOGLOBIN 10.2 g/dL (13.5-17.0); MEAN CORPUSCULAR HEMOGLOBIN 37.2 pg (27.0-33.4); MEAN CORPUSCULAR HGB CONC 34.8 g/dL (32.0-36.0); MEAN CORPUSCULAR VOLUME 107 fl (80-97); PLATELET COUNT 208 10^3/uL (150-450); RED BLOOD COUNT 2.75 10^6/uL (4.35-5.55); SEGMENTED NEUTROPHILS % (AUTO) 81.9 % (42-78); TOTAL CELLS COUNTED % (AUTO) 100 %; WHITE BLOOD COUNT 8.2 10^3/uL (4.0-10.5)
[2018-01-06] MEDS ORDERED: PHENYLEPHRINE HCL INJ/PF 10 MG/1 ML SDV ONE (09:39)
[2018-01-06 09:47] LABS: APPEARANCE,URINE SLIGHTLY-CLOUDY; BILIRUBIN,URINE NEGATIVE (NEGATIVE); COLOR,URINE YELLOW; GLUCOSE, URINE >=500 mg/dL (NEGATIVE); KETONES,URINE 80 mg/dL (NEGATIVE); LEUKOCYTE ESTERASE,URINE NEGATIVE (NEGATIVE); NITRITE,URINE NEGATIVE (NEGATIVE); PROTEIN,URINE NEGATIVE (NEGATIVE); URINE SPECIFIC GRAVITY 1.013; UROBILINOGEN,URINE NEGATIVE mg/dL (<2.0)
[2018-01-06 09:48] LABS: INTERNATIONAL RATION (INR) 1.24; PROTHROMBIN TIME 16.2 SEC (11.4-15.4)
[2018-01-06 09:49] LABS: PARTIAL THROMBOPLASTIN TIME 31.4 SEC (23.5-35.8)
[2018-01-06] MEDS ORDERED: ENOXAPARIN SODIUM INJ 40 MG/0.4 ML DISP.SYRIN SUBCUT SCH (10:00)
--- NOTE | 2018-01-06 10:16 | Operative Report ---
Operative Report DATE OF SURGERY: 01/06/18 PREOPERATIVE DIAGNOSIS: 1. Respiratory failure. 2. Metabolic acidosis. 3. Septic shock POSTOPERATIVE DIAGNOSIS: Same OPERATION: Focused ultrasound of right neck, ultrasound directed insertion of triple-lumen central venous access catheter interpretation of portable upright chest x-ray SURGEON: ANTONY STAFFORD ANESTHESIA: Local TISSUE REMOVED OR ALTERED: None COMPLICATIONS: None ESTIMATED BLOOD LOSS: Minimal INTRAOPERATIVE FINDINGS: See below PROCEDURE: Informed consent was obtained. The patient was placed in Trendelenburg the right neck and chest wall were exposed, and prepped and draped in a sterile fashion. Surgical plan and surgical timeout discussed. The right neck was anesthetized with 1% lidocaine without epinephrine. Using the variable frequency linear transducer, real time, a 18-gauge needle and wire were threaded into the right internal jugular vein. The tract was dilated up, the dilator removed, and the triple-lumen central venous access catheter was threaded into the right internal jugular vein uneventfully to the hub. There was excellent aspiration and flush of saline through all 3 lumens. The catheter was affixed to the skin with a Biopatch and 2-0 silk suture; sterile dressing applied. The patient tolerated the procedure well. There were no complications. Portable upright chest x-ray strength tip of the catheter in the IVC versus right atrium; no evidence of pneumothorax.
--- NOTE | 2018-01-06 13:53 | EKG REPORT ---
SEVERITY:- OTHERWISE NORMAL ECG - SINUS RHYTHM LOW VOLTAGE IN FRONTAL LEADS : Confirmed by: Juliano Valladares MD 06-Jan-2018 13:52:28
--- NOTE | 2018-01-06 13:54 | EKG REPORT ---
SEVERITY:- ABNORMAL ECG - SINUS TACHYCARDIA NONSPECIFIC ST-T CHANGES- INFERIOR LEADS : Confirmed by: Juliano Valladares MD 06-Jan-2018 13:53:32
[2018-01-06] MEDS ORDERED: SUCCINYLCHOLINE CHLORIDE INJ 200 MG/10 ML VIAL ONE (16:48)
--- NOTE | 2018-01-06 17:38 | Progress Note ---
Provider Note Provider Note: This is a 62-year-old man who was admitted to the hospitalist with DKA and then found to have an elevated troponin. Not turn us worked on transfer to higher level of care. At change of shift we learned that this patient did not have a bed at [facility], no bed availability. I then evaluated the patient and worked on transfer to another hospital. The patient had DKA and was on insulin drip and receiving IV fluids. I ordered every 2 hour basic metabolic panels to keep close track of his electrolytes. The patient was hypotensive and on maximum dose levo fed, the kosher sealer added Tj-Synephrine just prior to transfer and on transfer his blood pressure and map were both normal. The patient had a troponin of 30 when I looked at his chart. I ordered continued troponins, consulted the legal investigator, started the patient on a heparin drip with the bolus. The patient has a heavy alcohol abuse history and also had a moderate amount of blood in his urine, no visible hematuria. For these reasons I spoke with his about the use of heparin. We talked about the risks of life-threatening bleeding related to heparin given his current condition and past medical history. We also talked about the benefits of heparin in treating an acute coronary syndrome. After learning about the risks and benefits she opted to accept the risks and approved the use of heparin to treat an acute coronary syndrome. The patient was transferred on a heparin drip. Prior to transfer and over the slot shift supervisor he had acute respiratory failure and was intubated, kosher sealer was consulted for vent management or to discharge. Some vent changes were made and ABG was significantly improved at transfer. The patient was transferred to the cardiac ICU at [facility] in [facility]. Accepting doctor was Carolyn COLLINS. prior to transfer, of note, I also spoke with the patient's about the critical nature of his condition. She stated that she had been able to ask her questions to her satisfaction.
--- NOTE | 2018-01-07 11:16 | PDOC CONSULTATION ---
Consultation Consult Date: 01/06/18 Attending physician:: BERRY ROSALES Consult reason:: resp failure/dka History of Present Illness Admission Date/PCP: 01/05/18 21:46 Patient complains of: intubated History of Present Illness: GEORGES GUZMÁN is a 62 year old male,Currently intubated and sedated presented to the emergency room 24 hours status post discharge from [facility] he presented complaining of nausea without vomiting and some epigastric pain he subsequently found to have a pH is 6.9 and was apparently in DKA at which time he get increasingly more confused and was subsequently intubated.DKA and rising troponin. Past Medical History Cardiac Medical History: Reports: Myocardial Infarction - x2, no stents, Hypertension Endocrine Medical History: Reports: Diabetes Mellitus Type 2 GI Medical History: Denies: Crohn's Disease, Ulcerative Colitis Musculoskeltal Medical History: Denies: Fibromyalgia Skin Medical History: Denies: Psoriasis Psychiatric Medical History: Reports: Alcohol Dependency, Tobacco Dependency Traumatic Medical History: Denies: Pneumothorax Hematology: Denies: Hemophilia Infectious Medical History: Denies: Clostridium Difficile Social History Smoking Status: Former Smoker - quit 2012 Frequency of Alcohol Use: Heavy Hx Recreational Drug Use: No Drugs: None Hx Prescription Drug Abuse: No - Advance Directive Resuscitation Status: Full Code Family History Family History: DM Parental Family History Reviewed: No Children Family History Reviewed: No Sibling(s) Family History Reviewed.: No - [id number] Medication/Allergy Home Medications: Aspirin [Aspirin EC] 81 mg PO DAILY 01/05/18 Atorvastatin Calcium [Lipitor 10 mg Tablet] 10 mg PO QHS 01/05/18 Insulin Glargine,Hum.rec.anlog [Lantus Solostar] 23 units SQ DAILY 01/05/18 Insulin Lispro [Humalog Kwikpen U-100] See Protocol SQ MEALS 01/05/18 Lisinopril [Zestril] 20 mg PO DAILY 01/05/18 Metoprolol Succinate [Toprol Xl 50 mg Tab.sr] 50 mg PO DAILY 01/05/18 Multivit-Min/FA/Lycopen/Lutein [Centrum Silver Men Tablet] 1 tab PO DAILY Allergies/Adverse Reactions: No Known Allergies Allergy (Unverified 01/05/18 20:21) Review of Systems ROS unobtainable: Due to endotracheal tube Physical Exam Vital Signs: Temp Pulse Resp BP Pulse Ox 98.6 F 107 H 29 H 87/53 L 97 01/06/18 06:00 01/05/18 23:35 01/06/18 06:00 01/06/18 05:51 01/06/18 06:00 Intake & Output 01/05/18 01/06/18 01/07/18 06:59 06:59 06:59 Intake Total 4442 Output Total 490 Balance 3952 Weight 91.9 kg General appearance: PRESENT: no acute distress, disheveled, obese. ABSENT: cooperative Head exam: PRESENT: atraumatic, normocephalic Eye exam: PRESENT: conjunctiva pale. ABSENT: EOMI, nystagmus, periorbital swelling, scleral icterus Mouth exam: PRESENT: dry mucosa, neck supple, tongue midline, other - ET ttube Neck exam: ABSENT: carotid bruit, JVD, lymphadenopathy, thyromegaly, tracheal deviation, tracheostomy Respiratory exam: PRESENT: decreased breath sounds, prolonged expiratory phas, rales, rhonchi, unlabored. ABSENT: retraction, stridor Cardiovascular exam: PRESENT: RRR, +S1, +S2, tachycardia Pulses: PRESENT: normal radial pulses - [address] GI/Abdominal exam: PRESENT: diminished bowel sounds, soft Extremities exam: ABSENT: calf tenderness, clubbing Musculoskeletal exam: ABSENT: ambulatory, deformity, dislocation Neurological exam: ABSENT: awake, oriented to person - [id number] Skin exam: PRESENT: dry, warm Results Laboratory Results: 01/06/18 06:00 01/06/18 06:00 01/05/18 01/05/18 01/05/18 22:50 23:00 23:55 WBC RBC Hgb Hct MCV MCH MCHC RDW Plt Count Seg Neutrophils % Lymphocytes % Monocytes % Eosinophils % Basophils % Absolute Neutrophils Absolute Lymphocytes Absolute Monocytes Absolute Eosinophils Absolute Basophils Carbonic Acid HCO3/H2CO3 Ratio ABG pH ABG pCO2 ABG pO2 ABG HCO3 ABG O2 Saturation ABG Base Excess FiO2 Sodium 133.3 L Potassium 5.6 H Chloride 90 L Carbon Dioxide 6 L* Anion Gap 37 H BUN 31 H Creatinine 2.18 H Est GFR ( Amer) 37 L Est GFR (Non-Af Amer) 31 L Glucose 613 H* Lactic Acid 4.6 H Calcium 9.7 Total Bilirubin AST ALT Alkaline Phosphatase Total Protein Albumin Triglycerides TSH Urine Color YELLOW Urine Appearance SLIGHTLY-CLOUDY Urine pH 5.0 Ur Specific [place] 1.013 Urine Protein 30 H Urine Glucose (UA) >=500 H Urine Ketones 80 H Urine Blood MODERATE H Urine Nitrite NEGATIVE Ur Leukocyte Esterase NEGATIVE Urine WBC (Auto) 0 Urine RBC (Auto) 1 01/06/18 01/06/18 01/06/18 00:10 02:07 03:00 WBC RBC Hgb Hct MCV MCH MCHC RDW Plt Count Seg Neutrophils % Lymphocytes % Monocytes % Eosinophils % Basophils % Absolute Neutrophils Absolute Lymphocytes Absolute Monocytes Absolute Eosinophils Absolute Basophils Carbonic Acid 0.39 L 0.48 L HCO3/H2CO3 Ratio 8:1 11:1 ABG pH 7.04 L* 7.17 L* ABG pCO2 12.8 L* 16.0 L* ABG pO2 157.6 H 53.9 L ABG HCO3 3.4 L 5.7 L ABG O2 Saturation 98.2 H 80.6 L ABG Base Excess -25.1 -20.7 FiO2 2L 2L Sodium 135.5 L Potassium 5.5 H Chloride 94 L Carbon Dioxide 5 L* Anion Gap Not Reportable BUN 33 H Creatinine 1.90 H Est GFR ( Amer) 44 L Est GFR (Non-Af Amer) 36 L Glucose 524 H* Lactic Acid Calcium 9.1 Total Bilirubin AST ALT Alkaline Phosphatase Total Protein Albumin Triglycerides TSH Urine Color Urine Appearance Urine pH Ur Specific [place] Urine Protein Urine Glucose (UA) Urine Ketones Urine Blood Urine Nitrite Ur Leukocyte Esterase Urine WBC (Auto) Urine RBC (Auto) 01/06/18 01/06/18 01/06/18 04:10 05:25 06:00 WBC 7.7 RBC 2.57 L Hgb 9.7 L D Hct 28.2 L MCV 110 H D MCH 37.6 H MCHC 34.3 RDW 13.1 Plt Count 198 Seg Neutrophils % 83.8 H Lymphocytes % 10.1 L Monocytes % 5.9 Eosinophils % 0.0 Basophils % 0.2 Absolute Neutrophils 6.5 Absolute Lymphocytes 0.8 Absolute Monocytes 0.5 Absolute Eosinophils 0.0 Absolute Basophils 0.0 Carbonic Acid 0.73 L HCO3/H2CO3 Ratio 12:1 ABG pH 7.18 L* ABG pCO2 24.1 L ABG pO2 143.3 H ABG HCO3 8.8 L ABG O2 Saturation 98.3 H ABG Base Excess -17.8 FiO2 50% Sodium 134.0 L Potassium 5.9 H Chloride 96 L Carbon Dioxide 8 L* Anion Gap 30 H BUN 36 H Creatinine 2.08 H Est GFR ( Amer) 39 L Est GFR (Non-Af Amer) 33 L Glucose 485 H* Lactic Acid Calcium 8.8 Total Bilirubin AST ALT Alkaline Phosphatase Total Protein Albumin Triglycerides TSH Urine Color Urine Appearance Urine pH Ur Specific [place] Urine Protein Urine Glucose (UA) Urine Ketones Urine Blood Urine Nitrite Ur Leukocyte Esterase Urine WBC (Auto) Urine RBC (Auto) 01/06/18 01/06/18 01/06/18 06:00 06:00 06:00 WBC RBC Hgb Hct MCV MCH MCHC RDW Plt Count Seg Neutrophils % Lymphocytes % Monocytes % Eosinophils % Basophils % Absolute Neutrophils Absolute Lymphocytes Absolute Monocytes Absolute Eosinophils Absolute Basophils Carbonic Acid HCO3/H2CO3 Ratio ABG pH ABG pCO2 ABG pO2 ABG HCO3 ABG O2 Saturation ABG Base Excess FiO2 Sodium 135.8 L Potassium 5.1 H Chloride 99 Carbon Dioxide 12 L Anion Gap 25 H BUN 37 H Creatinine 2.16 H Est GFR ( Amer) 38 L Est GFR (Non-Af Amer) 31 L Glucose 436 H* Lactic Acid Calcium 8.4 Total Bilirubin 0.3 AST 155 H ALT 47 Alkaline Phosphatase 46 Total Protein 5.2 L Albumin 3.0 L Triglycerides 162 H TSH 0.90 Urine Color Urine Appearance Urine pH Ur Specific [place] Urine Protein Urine Glucose (UA) Urine Ketones Urine Blood Urine Nitrite Ur Leukocyte Esterase Urine WBC (Auto) Urine RBC (Auto) 01/05/18 01/06/18 22:50 02:57 Troponin I 2.800 30.300 Assessment & Plan - Diagnosis (1) Acute myocardial infarction Is this a current diagnosis for this admission?: Yes Plan: trponins rising max 30 thus far hx CAD (2) Alcohol dependence Qualifiers: Substance use status: uncomplicated Qualified Code(s): F10.20 - Alcohol dependence, uncomplicated Is this a current diagnosis for this admission?: Yes Plan: historically (3) DKA (diabetic ketoacidoses) Qualifiers: Diabetes mellitus type: type 2 Is this a current diagnosis for this admission?: Yes Plan: bs .400 acidotic insulin drip - Time Total Critical Time (Minutes): 65
[2018-01-09 09:00] LABS: PATH REVIEW PATHOLOGIST REVIEWED
== END 2018-01-06 10:00 | disposition short-term general hospital (02) | DRG 637 ==
LOC: ER 18:35 → EH 21:46 → ICU 23:10
PROVIDERS: ADMIT Internal Medicine; ATTEND Internal Medicine
PROC: 02HV33Z Insertion of Infusion Device into Superior Vena Cava, Percutaneous Approach (ICD-10-PCS; principal; 2018-01-06)
PROC: B548ZZA Ultrasonography of Superior Vena Cava, Guidance (ICD-10-PCS; 2018-01-06)
PROC: 5A1935Z Respiratory Ventilation, Less than 24 Consecutive Hours (ICD-10-PCS; 2018-01-06)
PROC: 0BH17EZ Insertion of Endotracheal Airway into Trachea, Via Natural or Artificial Opening (ICD-10-PCS; 2018-01-06)
DX: E11.10 Type 2 diabetes mellitus with ketoacidosis without coma (principal); I21.4 Non-ST elevation (NSTEMI) myocardial infarction; N17.9 Acute kidney failure, unspecified; I24.9 Acute ischemic heart disease, unspecified; E11.65 Type 2 diabetes mellitus with hyperglycemia; E11.43 Type 2 diabetes mellitus with diabetic autonomic (poly)neuropathy; K31.84 Gastroparesis; I10 Essential (primary) hypertension; E78.5 Hyperlipidemia, unspecified; E87.5 Hyperkalemia; R68.0 Hypothermia, not associated with low environmental temperature; I95.9 Hypotension, unspecified; I25.10 Atherosclerotic heart disease of native coronary artery without angina pectoris; F10.20 Alcohol dependence, uncomplicated; Y90.0 Blood alcohol level of less than 20 mg/100 ml; I25.2 Old myocardial infarction; Z79.4 Long term (current) use of insulin; Z79.82 Long term (current) use of aspirin; Z79.899 Other long term (current) drug therapy; Z87.891 Personal history of nicotine dependence
CPT/HCPCS: 31500; 36415; 36600; 71045; 80048; 80053; 80307; 81001; 82550; 82553; 82803; 82962; 83036; 83605; 83880; 84443; 84478; 84484; 85025; 85610; 85730; 87040; 87086; 93005; 93010; 94002; 94640; 94660; 96361; 96365; 99291; C1751; J0330; J0610; J1644; J1815; J2060; J2250; J2270; J2370; J2704; J2765; J3490; J7030; J7060; J7120